=== PATIENT | male | born 1940 | race Caucasian/White ===

== ENCOUNTER 2018-09-20 10:15 | Outpatient (CLI) | payer MEDICARE, MEDICAID ==
[~2018-09-20 10:15] MED LIST: AMIO100T4 PO; AMLO1CAP10 PO; CALC500T33 PO; CARB1TAB23 PO; CEPH500C5 PO; CLOP75TA35 PO; FERR325T28 PO; MULT1TAB74 PO; POLY17PO10 PO; RISP1TAB13 PO; [UNRECOGNIZED DRUG - CODE] TP; [UNRECOGNIZED DRUG - SUPPLY] TOP
--- NOTE | 2018-09-20 13:00 | NUR ---
Patient arrived via wheelchair accompanied by caregiver from [facility] and was admitted to outpatient wound care for physician visit with Henrik Raygoza MD. Dressing removed, wound cleansed and lidocaine applied per order. New patient assessment completed with assistance from caregiver by RN, medications reviewed. 1130 - Dr. Raygoza at bedside accompanied by RN. Wound assessed by MD and orders written. Plan of care discussed with patient's caregiver. Dressings placed per MD orders however when RN approached [facility] to place dressings the patient became combative and began cussing and striking out. Caregiver was unable to calm patient down and telephoned her agency for assistance. No assistance came and patient became increasingly combative with caregiver and staff and was not safe for transfer back to his wheelchair from [facility] so security was called for assistance. Patient was able to be transferred safely to his wheelchair without outbursts with presence of security and no further intervention was needed. Patient instructed on the signs and symptoms of infection and to call the Wound Center if any occur or to go to the ED if we are closed: Increased pain in wound Increase in drainage from the wound Redness in the skin surrounding the wound Bleeding from the wound Temperature of 101 or greater Patient instructed that the weight of their body puts a large amount of pressure on their wounds. This pressure keeps the new tissue from growing and inhibits new blood vessels from forming. Explained that, if they continue to bear weight on a body part that has a wound, the time it takes to heal the wound increases, the wound may get worse or the wound may not heal at all. Patient's caregiver verbalized understanding of all discharge instructions and plan of care and drove patient in wheelchair out to [facility]. Patient is in stable condition with no sign or symptom of distress at time of discharge.
== END 2018-09-20 13:16 | disposition home or self-care (01) ==
LOC: WOUND CARE 10:15 → EDSTATUS 10:30 → WOUND CARE 13:16
PROVIDERS: ATTEND Surgery
DX: L89.892 Pressure ulcer of other site, stage 2 (principal); I10 Essential (primary) hypertension; I48.91 Unspecified atrial fibrillation; G89.29 Other chronic pain; M54.9 Dorsalgia, unspecified; F03.90 Unspecified dementia, unspecified severity, without behavioral disturbance, psychotic disturbance, mood disturbance, and anxiety; Z87.440 Personal history of urinary (tract) infections; Z79.01 Long term (current) use of anticoagulants; Z79.899 Other long term (current) drug therapy; Z98.890 Other specified postprocedural states; Z95.0 Presence of cardiac pacemaker; Z86.73 Personal history of transient ischemic attack (TIA), and cerebral infarction without residual deficits; Z90.49 Acquired absence of other specified parts of digestive tract; Z87.891 Personal history of nicotine dependence
CPT/HCPCS: A6021; A6206; A6212; G0463

== ENCOUNTER 2018-09-27 10:20 | Outpatient (CLI) | payer MEDICARE, MEDICAID ==
--- NOTE | 2018-09-27 12:00 | NUR ---
Patient arrived via wheelchair accompanied by caregiver from [facility] and was admitted to outpatient wound care for physician visit with Henrik Raygoza MD. Dressing removed, wound cleansed. Patient assessed for changes in conditions, medications and medical history. 1145 - Dr. Raygoza at bedside accompanied by RN. Wound assessed by and is declared healed. Patient care is discussed with patient's caregiver and options for assistance at home are discussed with caregiver. Patient is discharged from the wound clinic to follow up on an as needed basis. Patient instructed on the signs and symptoms of infection and to call the Wound Center if any occur or to go to the ED if we are closed: Increased pain in wound Increase in drainage from the wound Redness in the skin surrounding the wound Bleeding from the wound Temperature of 101 or greater Patient instructed that the weight of their body puts a large amount of pressure on their wounds. This pressure keeps the new tissue from growing and inhibits new blood vessels from forming. Explained that, if they continue to bear weight on a body part that has a wound, the time it takes to heal the wound increases, the wound may get worse or the wound may not heal at all. Patient's caregiver verbalized understanding of all discharge instructions and plan of care and drove patient via wheelchair out to [facility] in stable condition with no sign or symptom of distress at time of discharge.
== END 2018-09-27 11:50 | disposition home or self-care (01) ==
LOC: WOUND CARE 10:20 → EDSTATUS 11:00 → WOUND CARE 11:50
PROVIDERS: ATTEND Surgery
DX: L89.892 Pressure ulcer of other site, stage 2 (principal); I10 Essential (primary) hypertension; I48.91 Unspecified atrial fibrillation; G89.29 Other chronic pain; M54.9 Dorsalgia, unspecified; F03.90 Unspecified dementia, unspecified severity, without behavioral disturbance, psychotic disturbance, mood disturbance, and anxiety; Z87.440 Personal history of urinary (tract) infections; Z79.01 Long term (current) use of anticoagulants; Z79.899 Other long term (current) drug therapy; Z98.890 Other specified postprocedural states; Z95.0 Presence of cardiac pacemaker; Z86.73 Personal history of transient ischemic attack (TIA), and cerebral infarction without residual deficits; Z90.49 Acquired absence of other specified parts of digestive tract; Z87.891 Personal history of nicotine dependence
CPT/HCPCS: G0463

== ENCOUNTER 2019-01-08 17:56 | Inpatient (IN) | payer MEDICARE, MEDICAID ==
[~2019-01-08] VITALS: Ht 193 cm; Wt 73.0 kg
[~2019-01-08 17:56] MED LIST changes: -CEPH500C5 PO
[2019-01-08] MEDS ORDERED: acetaminophen 650mg rectal suppository RC ONE (18:15)
[2019-01-08 19:15] LABS: CLARITY,URINE TURBID (Clear); COLOR,URINE YELLOW (Yellow); GLUCOSE, URINE NEGATIVE (Neg); KETONES,URINE NEGATIVE (Neg); LEUKOCYTE ESTERASE ,URINE MODERATE (Neg); OCCULT BLOOD,URINE LARGE (Neg); PROTEIN,URINE 100 mg/dl (Neg)
[2019-01-08 19:17] LABS: UA COLLECTION TYPE STRAIGHT CATH
[2019-01-08 19:17] LABS: BASOPHILS % (AUTO) 0.2 % (0-1); EOSINOPHILS % (AUTO) 0.1 % (0-6); HEMATOCRIT 32.6 % (42.0-52.0); LYMPHOCYTES # (AUTO) 0.1 X10'3 (1.1-4.8); LYMPHOCYTES % (AUTO) 2.3 % (21-51); MEAN CORPUSCULAR HEMOGLOBIN 30.8 PG (27.0-31.0); MEAN CORPUSCULAR HGB CONC 33.6 g/dL (33.0-36.5); MEAN CORPUSCULAR VOLUME 91.6 FL (78-98); MEAN PLATELET VOLUME 9.1 FL (7.4-10.4); MONOCYTES # (AUTO) 0.1 X10'3 (0-0.9); MONOCYTES % (AUTO) 1.2 % (2-12); NEUTROPHILS # (AUTO) 4.7 X10'3 (1.8-7.7); NEUTROPHILS % (AUTO) 96.2 % (42-75); PLATELET COUNT 77 X10'3 (140-440); RED BLOOD COUNT 3.56 X10'6 (4.70-6.10); RED CELL DISTRIBUTION WIDTH 14.8 % (11.5-14.5); WHITE BLOOD COUNT 4.9 X10'3 (4.5-11.0)
[2019-01-08 19:18] LABS: NITRITES, URINE NEGATIVE (Neg)
[2019-01-08 19:19] LABS: BACTERIA,URINE 1+ /HPF (Neg); SQUAMOUS EPITHELIAL CELL,UR FEW /LPF (FEW); WBC CLUMPS,URINE MANY /HPF (NEGATIVE); WBC,URINE TNTC /HPF (0-4)
[2019-01-08 19:33] LABS: ALANINE AMINOTRANSFERASE 37 U/L (12-78); ALBUMIN 2.6 G/DL (3.4-5.0); ALBUMIN/GLOBULIN RATIO 0.8 (1.1-1.5); ALKALINE PHOSPHATASE 58 IU/L (46-116); ANION GAP 10 (8-16); ASPARTATE AMINO TRANSFERASE 41 U/L (10-37); BILIRUBIN,TOTAL 0.6 MG/DL (0.1-1.0); BLOOD UREA NITROGEN 31 MG/DL (7-18); BUN/CREATININE RATIO 17.6 (5.4-32.0); CALCIUM 8.8 MG/DL (8.5-10.1); CHLORIDE 107 MMOL/L (99-107); CREATININE 1.76 MG/DL (0.60-1.10); GLUCOSE 125 MG/DL (70-104); POTASSIUM 3.2 MMOL/L (3.5-5.1); SODIUM 140 MMOL/L (135-145); TOTAL CARBON DIOXIDE 23.2 MMOL/L (24-32); eGFR 37 ML/MIN
[2019-01-08 19:50] LABS: INR 1.1 INR; PARTIAL THROMBOPLASTIN TIME 29 SECONDS (22-32)
--- NOTE | 2019-01-08 19:57 | NUR ---
PTS HR INCREASED TO 138. STAT EKG ORDERED
[2019-01-08] MEDS ORDERED: normal saline 1000ML IV soln IVB STA (19:59)
[2019-01-08] MEDS ORDERED: CefTRIAXone 2gm/D5W 50ml 50 ML IV STA (19:59)
[2019-01-08] MEDS ORDERED: diltiazem 5mg/ml 5ml inj. IV ONE (20:10)
[2019-01-08] MEDS ORDERED: amiodarone 150mg/dext, iso-os 100 ML IV ONE (21:15)
[2019-01-08] MEDS ORDERED: ASPI-1265 PO (21:36)
[2019-01-08] MEDS ORDERED: CETI-102 PO (21:36)
[2019-01-08] MEDS ORDERED: BENA20TA82 PO (21:36)
[2019-01-08] MEDS ORDERED: ACET-2119 PO (21:36)
[2019-01-08] MEDS ORDERED: amiodarone/D5 360MG/200ML BAG 200 ML IV ONE (22:47)
[2019-01-08] MEDS ORDERED: normal saline 1000ML IV soln IVB ONE (22:50)
[2019-01-08] MEDS ORDERED: potassium Cl 40MEQ/NS 500ml 500 ML IV PRN ×2 (23:50)
[2019-01-08] MEDS ORDERED: magnesium 4gm in 100ml NS 100 ML IV PRN (23:50)
[2019-01-08] MEDS ORDERED: mag hydrox/Alum hydrox/simeth 30ml oral suspension PO PRN (23:50)
[2019-01-08] MEDS ORDERED: ondansetron/PF 4mg/2ml inj IV PRN (23:50)
[2019-01-08] MEDS ORDERED: magnesium Cl slow-release 64mg tablet PO PRN (23:50)
[2019-01-08] MEDS ORDERED: potassium Cl 20 mEq SR tablet PO PRN (23:50)
[2019-01-08] MEDS ORDERED: acetaminophen 325mg tablet PO PRN ×2 (23:50)
[2019-01-08] MEDS ORDERED: magnesium 2GM in 50ml NS 50 ML IV PRN (23:50)
[2019-01-08] MEDS ORDERED: docusate sod 100mg capsule PO PRN (23:50)
[2019-01-09] VITALS (10 sets, daily range): BP systolic 93–142; BP diastolic 52–89
[2019-01-09] MEDS ORDERED: normal saline 1000ML IV soln IVB ONE (00:35)
[2019-01-09] MEDS ORDERED: calcium carbonate 500mg chew tablet PO PRN (02:00)
[2019-01-09] MEDS: normal saline 1000ml 1,000 ML IV SCH ×3 (04:59→20:41)
--- NOTE | 2019-01-09 05:48 | NUR ---
PAGER ID: [phone] MESSAGE: [id number] DANIELLA, has positive blood culture, GRAM POSITIVE COCCI IN PAIRS AND SHORT CHAINs. and he is on Rocephin. Barbara [phone]
--- NOTE | 2019-01-09 06:23 | NUR ---
Problems reprioritized. Patient report given, questions answered & plan of care reviewed with ANASTASIA CHAMPION.
--- NOTE | 2019-01-09 06:29 | NUR ---
Patient in room PCU 3028M. I have received report from Chace CHAMPION and had the opportunity to ask questions and assume patient care.
[2019-01-09 06:31] LABS: BASOPHILS % (AUTO) 0.5 % (0-1); EOSINOPHILS % (AUTO) 0.1 % (0-6); HEMOGLOBIN 10.8 g/dl (14.0-17.9); LYMPHOCYTES # (AUTO) 0.6 X10'3 (1.1-4.8); LYMPHOCYTES % (AUTO) 7.3 % (21-51); MEAN CORPUSCULAR HEMOGLOBIN 30.9 PG (27.0-31.0); MEAN CORPUSCULAR HGB CONC 33.6 g/dL (33.0-36.5); MEAN CORPUSCULAR VOLUME 92.1 FL (78-98); MEAN PLATELET VOLUME 9.9 FL (7.4-10.4); MONOCYTES # (AUTO) 0.5 X10'3 (0-0.9); NEUTROPHILS # (AUTO) 6.6 X10'3 (1.8-7.7); NEUTROPHILS % (AUTO) 86.1 % (42-75); PLATELET COUNT 71 X10'3 (140-440); RED BLOOD COUNT 3.48 X10'6 (4.70-6.10); RED CELL DISTRIBUTION WIDTH 14.6 % (11.5-14.5); WHITE BLOOD COUNT 7.7 X10'3 (4.5-11.0)
[2019-01-09 06:43] LABS: ALANINE AMINOTRANSFERASE 34 U/L (12-78); ALBUMIN 2.3 G/DL (3.4-5.0); ALBUMIN/GLOBULIN RATIO 0.7 (1.1-1.5); ALKALINE PHOSPHATASE 53 IU/L (46-116); ANION GAP 8 (8-16); ASPARTATE AMINO TRANSFERASE 34 U/L (10-37); BILIRUBIN,TOTAL 0.3 MG/DL (0.1-1.0); BLOOD UREA NITROGEN 29 MG/DL (7-18); CALCIUM 8.2 MG/DL (8.5-10.1); CHLORIDE 110 MMOL/L (99-107); CHOL/HDL RATIO 3.8 (0.00-4.99); CHOLESTEROL 158 MG/DL (0-200); CREATININE 1.61 MG/DL (0.60-1.10); GLUCOSE 119 MG/DL (70-104); HDL CHOLESTEROL 42 MG/DL (35-60); LDL CHOLESTEROL 90 MG/DL (50-100); MAGNESIUM 2.1 MG/DL (1.5-2.4); SODIUM 143 MMOL/L (135-145); TOTAL CARBON DIOXIDE 25.1 MMOL/L (24-32); TOTAL PROTEIN 5.7 G/DL (6.4-8.2); TRIGLYCERIDES 97 MG/DL (20-135); eGFR 41 ML/MIN
[2019-01-09] MEDS: acetaminophen 325mg tablet PO SCH ×4 (08:00→21:00)
[2019-01-09] MEDS: K and/or MAG REPLACEMENT MC SCH (08:00)
[2019-01-09] MEDS ORDERED: cetirizine 10mg tablet PO SCH (08:00)
[2019-01-09] MEDS ORDERED: amiodarone 100mg tablet PO SCH (08:00)
[2019-01-09] MEDS: clopidogrel 75mg tablet PO SCH (08:12)
[2019-01-09] MEDS: ferrous sulfate 325mg tablet PO SCH (08:14)
[2019-01-09] MEDS: multivitamins, therapeutics tablet PO SCH (08:14)
[2019-01-09] MEDS: aspirin 81mg tab.chew PO SCH (08:14)
[2019-01-09] MEDS: amiodarone 100mg tablet PO SCH (09:56)
[2019-01-09] MEDS: risperiDONE 0.5mg tablet PO SCH ×2 (12:39→20:29)
[2019-01-09] MEDS ORDERED: cetirizine 10mg tablet PO PRN (12:50)
--- NOTE | 2019-01-09 13:49 | NUR ---
paged Dr Gold regarding patient IV PAGER ID: [phone] MESSAGE: Jacquie [phone]. RE Magaly Jacinto [id number]. Pt pulled out IV. Nurse began to attempt to replace IV but pt is very irritable and combative, nurse felt unsafe to continue. Pt to receive IV abx tonight-- are you okay with no new IV placement?
[2019-01-09] MEDS ORDERED: haloperidol lactate 5mg/ml inj IM ONE (14:15)
--- NOTE | 2019-01-09 15:13 | NUR ---
Иван trigger: Иван Montes De Oca skin intact. Addendum: 01/09/19 at [address] Amended: Links added.
--- NOTE | 2019-01-09 16:22 | NUR ---
PAGER ID: [phone] MESSAGE: [phone] pt Orville is still very restless and agitated despite Haldol. It is unsafe to attempt to put in IV in his arm with his movements. May we alternatively place it in a foot? - Pura [phone]
--- NOTE | 2019-01-09 18:18 | NUR ---
Problems reprioritized. Patient report given, questions answered & plan of care reviewed with Ihsan CHAMPION and Nitish CHAMPION.
--- NOTE | 2019-01-09 18:38 | NUR ---
Patient in room PCU 3027. I have received report from Jacquie and had the opportunity to ask questions and assume patient care.
[2019-01-09] MEDS: lactobacillus rhamnosus 10,000 MMU CELLS/CAPSULE PO SCH (20:29)
[2019-01-09] MEDS: CefTRIAXone/D5W-Rocephin 1gm 50 ML IV SCH (20:30)
[2019-01-10 02:00] VITALS: BP 148/69
--- NOTE | 2019-01-10 04:20 | NUR ---
Patient had mittens removed for 2 hours. He didn't try to pull off and cords or IVs and was being cooperative. DC'd restraints.
[2019-01-10 06:00] VITALS: BP 147/60
[2019-01-10 06:03] LABS: BASOPHILS % (AUTO) 0.3 % (0-1); EOSINOPHILS % (AUTO) 0.3 % (0-6); HEMATOCRIT 30.3 % (42.0-52.0); HEMOGLOBIN 10.2 g/dl (14.0-17.9); LYMPHOCYTES # (AUTO) 0.7 X10'3 (1.1-4.8); LYMPHOCYTES % (AUTO) 10.6 % (21-51); MEAN CORPUSCULAR HEMOGLOBIN 30.9 PG (27.0-31.0); MEAN CORPUSCULAR HGB CONC 33.6 g/dL (33.0-36.5); MEAN CORPUSCULAR VOLUME 91.9 FL (78-98); MEAN PLATELET VOLUME 9.9 FL (7.4-10.4); MONOCYTES # (AUTO) 0.6 X10'3 (0-0.9); MONOCYTES % (AUTO) 8.8 % (2-12); NEUTROPHILS # (AUTO) 5.1 X10'3 (1.8-7.7); PLATELET COUNT 63 X10'3 (140-440); RED CELL DISTRIBUTION WIDTH 14.7 % (11.5-14.5); WHITE BLOOD COUNT 6.3 X10'3 (4.5-11.0)
[2019-01-10 06:13] LABS: ALBUMIN 2.4 G/DL (3.4-5.0); ANION GAP 8 (8-16); BLOOD UREA NITROGEN 23 MG/DL (7-18); BUN/CREATININE RATIO 18.1 (5.4-32.0); CALCIUM 8.2 MG/DL (8.5-10.1); CHLORIDE 110 MMOL/L (99-107); CREATININE 1.27 MG/DL (0.60-1.10); GLUCOSE 108 MG/DL (70-104); POTASSIUM 3.2 MMOL/L (3.5-5.1); SODIUM 143 MMOL/L (135-145); TOTAL CARBON DIOXIDE 24.7 MMOL/L (24-32); eGFR 55 ML/MIN
--- NOTE | 2019-01-10 06:25 | NUR ---
Problems reprioritized. Patient report given, questions answered & plan of care reviewed with Jacquie.
--- NOTE | 2019-01-10 06:43 | NUR ---
Patient in room PCU 3026W. I have received report from Ihsan CHAMPION and had the opportunity to ask questions and assume patient care.
--- NOTE | 2019-01-10 07:24 | NUR ---
EMAR showed 2100 dose of Tylenol. I was not here during that dose, and needed to "Non-admin" to clear it from EMAR. Called pharmacy to ask them to clear the dose, but pharmacist said she is unable to and that I need to "Non admin" it and write the note.
[2019-01-10] MEDS: clopidogrel 75mg tablet PO SCH (08:00)
[2019-01-10] MEDS: multivitamins, therapeutics tablet PO SCH (08:22)
[2019-01-10] MEDS: aspirin 81mg tab.chew PO SCH (08:23)
[2019-01-10] MEDS: risperiDONE 0.5mg tablet PO SCH ×2 (08:23→20:48)
[2019-01-10] MEDS: lactobacillus rhamnosus 10,000 MMU CELLS/CAPSULE PO SCH ×2 (08:23→20:48)
[2019-01-10] MEDS: amiodarone 100mg tablet PO SCH (08:23)
[2019-01-10] MEDS: ferrous sulfate 325mg tablet PO SCH (08:23)
[2019-01-10] MEDS: acetaminophen 325mg tablet PO SCH ×4 (08:24→20:42)
[2019-01-10] MEDS: potassium Cl 20 mEq SR tablet PO PRN ×3 (08:25→20:49)
[2019-01-10] MEDS: K and/or MAG REPLACEMENT MC SCH (08:31)
--- NOTE | 2019-01-10 09:55 | NUR ---
PAGER ID: [phone] MESSAGE: Jacquie [phone]. RE: Magaly Jacinto 3027B. Pts caregivers are here & state that patient only uses wheelchair and requires assist between bed and wheelchair. Would you like me to still page for an extended PIV or leave current IV in foot?
--- NOTE | 2019-01-10 10:54 | NUR ---
Per caregivers, patient does not walk, he only uses wheelchair. I passed this onto Dr Cortés, and he stated that leaving the IV in the patient's foot is fine, and asked to have the caregivers bring in his wheelchair from home.
[2019-01-10 11:00] VITALS: BP 127/67
--- NOTE | 2019-01-10 11:53 | NUR ---
PAGER ID: [phone] MESSAGE: Jacquie cole [phone]. RE: Magaly Jacinto [id number]. Family is in the room and would like to speak with you when you can. Thank you
[2019-01-10 15:00] VITALS: BP 128/66
--- NOTE | 2019-01-10 18:17 | NUR ---
Patient in room PCU 3025S. I have received report from JAYCEE Dhillon and had the opportunity to ask questions and assume patient care. Patient is awake for bedside report and is stable at this time. Will continue to monitor closely.
--- NOTE | 2019-01-10 18:29 | NUR ---
Problems reprioritized. Patient report given, questions answered & plan of care reviewed with Rubina CHAMPION and Nitish CHAMPION.
[2019-01-10 19:00] VITALS: BP 146/75
[2019-01-10] MEDS: CefTRIAXone/D5W-Rocephin 1gm 50 ML IV SCH (20:48)
[2019-01-10 23:00] VITALS: BP 177/98
[2019-01-11] VITALS (12 sets, daily range): BP systolic 114–174; BP diastolic 60–92
--- NOTE | 2019-01-11 00:44 | NUR ---
PAGER ID: [phone] MESSAGE: Nitish Benson RN ext. [phone] converted back into Afib at 0030. Rate varies between 90-120. Has PPM. Patient is sleeping at this time. Please let me know if you would like me to do anything at this time. Thank You!
--- NOTE | 2019-01-11 00:45 | NUR ---
Spoke directly with Dr. Dela Cruz and gave one time order of IV amiodarone 600 mL/hr bolus. Patient agitated but alert. Will continue to monitor closely.
[2019-01-11] MEDS ORDERED: amiodarone 150mg/dext, iso-os 100 ML IV ONE (00:50)
--- NOTE | 2019-01-11 03:24 | NUR ---
PAGER ID: [phone] MESSAGE: Nitish Benson RN ext. [phone] Patient in 3027b rate has decreased from 130's to 110's and is still in afib after loading dose of amiodarone Addendum: 01/11/19 at 0534 by Jimenez Benson RN Spoke to Dr. Dela Cruz via telephone and confirmed order for amiodarone drip at 33 mL/hr. Patient is back on mobile 66. VS q15min. Will continue to monitor closely.
[2019-01-11] MEDS: amiodarone/D5 360MG/200ML BAG 200 ML IV SCH ×2 (03:37→08:44)
[2019-01-11 05:14] LABS: BASOPHILS % (AUTO) 0.5 % (0-1); EOSINOPHILS # (AUTO) 0.1 X10'3 (0-0.9); EOSINOPHILS % (AUTO) 1.1 % (0-6); HEMATOCRIT 31.6 % (42.0-52.0); HEMOGLOBIN 10.8 g/dl (14.0-17.9); LYMPHOCYTES # (AUTO) 0.7 X10'3 (1.1-4.8); LYMPHOCYTES % (AUTO) 10.9 % (21-51); MEAN CORPUSCULAR HEMOGLOBIN 31.2 PG (27.0-31.0); MEAN CORPUSCULAR HGB CONC 34.3 g/dL (33.0-36.5); MEAN CORPUSCULAR VOLUME 90.8 FL (78-98); MEAN PLATELET VOLUME 9.9 FL (7.4-10.4); MONOCYTES # (AUTO) 0.5 X10'3 (0-0.9); MONOCYTES % (AUTO) 8.6 % (2-12); NEUTROPHILS # (AUTO) 4.9 X10'3 (1.8-7.7); NEUTROPHILS % (AUTO) 78.9 % (42-75); PLATELET COUNT 72 X10'3 (140-440); RED BLOOD COUNT 3.48 X10'6 (4.70-6.10); RED CELL DISTRIBUTION WIDTH 14.9 % (11.5-14.5); WHITE BLOOD COUNT 6.2 X10'3 (4.5-11.0)
[2019-01-11 05:38] LABS: ALBUMIN 2.4 G/DL (3.4-5.0); ANION GAP 7 (8-16); BLOOD UREA NITROGEN 15 MG/DL (7-18); BUN/CREATININE RATIO 12.5 (5.4-32.0); CALCIUM 8.9 MG/DL (8.5-10.1); CHLORIDE 112 MMOL/L (99-107); GLUCOSE 134 MG/DL (70-104); MAGNESIUM 2.2 MG/DL (1.5-2.4); POTASSIUM 3.6 MMOL/L (3.5-5.1); SODIUM 144 MMOL/L (135-145); TOTAL CARBON DIOXIDE 24.7 MMOL/L (24-32); eGFR 58 ML/MIN
--- NOTE | 2019-01-11 06:15 | NUR ---
Orientee documentation: I have reviewed and agree with all interventions, assessments performed and documented by Nitish CHAMPION. Orientee Medication Administration: For this medication-pass time frame, all medication were reviewed, dispensed, administered and documented per hospital policy by Nitish CHAMPION.
--- NOTE | 2019-01-11 06:18 | NUR ---
Problems reprioritized. Patient report given, questions answered & plan of care reviewed with JAYCEE Dhillon and JAYCEE George.
--- NOTE | 2019-01-11 06:46 | NUR ---
Patient in room PCU 3024Y. I have received report from Rubina CHAMPION and Nitish CHAMPION and had the opportunity to ask questions and assume patient care.
[2019-01-11] MEDS: K and/or MAG REPLACEMENT MC SCH (07:49)
[2019-01-11] MEDS: aspirin 81mg tab.chew PO SCH (08:42)
[2019-01-11] MEDS: clopidogrel 75mg tablet PO SCH (08:43)
[2019-01-11] MEDS: lactobacillus rhamnosus 10,000 MMU CELLS/CAPSULE PO SCH (08:43)
[2019-01-11] MEDS: acetaminophen 325mg tablet PO SCH ×2 (08:43→15:35)
[2019-01-11] MEDS: amiodarone 100mg tablet PO SCH (08:43)
[2019-01-11] MEDS: multivitamins, therapeutics tablet PO SCH (08:44)
[2019-01-11] MEDS: ferrous sulfate 325mg tablet PO SCH (08:44)
[2019-01-11] MEDS: risperiDONE 0.5mg tablet PO SCH (08:44)
[2019-01-11] MEDS ORDERED: LACT1CAP26 PO (11:05)
[2019-01-11] MEDS ORDERED: AMOX500C2 PO (11:05)
--- NOTE | 2019-01-11 13:15 | NUR ---
Patient in room PCU 3027. I have received report from Jacquie CHAMPION and had the opportunity to ask questions and assume patient care.
--- NOTE | 2019-01-11 13:17 | NUR ---
Problems reprioritized. Patient report given, questions answered & plan of care reviewed with Nereyda CHAMPION.
--- NOTE | 2019-01-11 13:19 | NUR ---
PAGER ID: [phone] MESSAGE: [id number] Anil Jacinto Pt is still on Amio gtt, received scheduled 100 mg PO this morning, discharge is complete. Awaiting for transport set up from case management. Can I disconnect pt from Amio? Please call Nereyda# [phone] Addendum: 01/11/19 at 1323 by Nereyda Juarze RN Dr. Lopez called back. Per Dr. Lopez, stop Amio gtt and keep pt on tele monitor for 2 hours. If pt's HR remains at a control rate, pt may then be discharged.
--- NOTE | 2019-01-11 16:24 | NUR ---
IV discontinued with canula intact and tele monitor removed. Discharge instruction reviewed with pt and pt's caregiver. Pt transported home via [facility]. Vital signs within normal limits at time of discharge. New prescriptions called by Jacquie CHAMPION
== END 2019-01-11 16:20 | disposition home health service (06) | DRG 871 ==
LOC: ER 17:57 → PCU 3S 23:57 → CMPBEDREQ 23:59
PROVIDERS: ADMIT Family Medicine; ATTEND Hospitalist
DX: A40.1 Sepsis due to streptococcus, group B (principal); G93.41 Metabolic encephalopathy; N12 Tubulo-interstitial nephritis, not specified as acute or chronic; N17.9 Acute kidney failure, unspecified; F02.80 Dementia in other diseases classified elsewhere, unspecified severity, without behavioral disturbance, psychotic disturbance, mood disturbance, and anxiety; G20 Parkinson's disease; I48.0 Paroxysmal atrial fibrillation; N18.9 Chronic kidney disease, unspecified; Z80.3 Family history of malignant neoplasm of breast; Z86.73 Personal history of transient ischemic attack (TIA), and cerebral infarction without residual deficits; Z87.891 Personal history of nicotine dependence; Z90.49 Acquired absence of other specified parts of digestive tract; Z99.3 Dependence on wheelchair; Z88.8 Allergy status to other drugs, medicaments and biological substances
CPT/HCPCS: 36415; 71045; 76775; 80048; 80053; 80061; 81001; 83605; 83735; 84145; 85025; 85610; 85730; 87040; 87070; 87077; 87088; 87186; 93005; 96365; 96366; 96367; 96375; 97161; 97530; 99291; G0378; J0282; J0696; J1630; J3490; J7030

== ENCOUNTER 2019-04-04 14:12 | Inpatient (IN) | payer MEDICARE, MEDICAID ==
[~2019-04-04] VITALS: Ht 193 cm; Wt 68.0 kg
[~2019-04-04 14:12] MED LIST changes: +ACET-2119 PO; -AMLO1CAP10 PO; +ASPI-1265 PO; +BENA20TA82 PO; -CARB1TAB23 PO; +CETI-102 PO; +LACT1CAP26 PO; -POLY17PO10 PO; -[UNRECOGNIZED DRUG - SUPPLY] TOP
[2019-04-04] MEDS ORDERED: normal saline 1000ML IV soln IVB ONE (14:25)
[2019-04-04] MEDS ORDERED: ketamine 50 mg/ml 10ml vial IV ONE (14:50)
[2019-04-04] MEDS ORDERED: ketamine 10mg/ml 20ml inj 25 MG in normal saline 100ml IV soln 97.5 ML IV ONE (15:15)
[2019-04-04 15:31] LABS: PARTIAL THROMBOPLASTIN TIME 27 SECONDS (22-32)
[2019-04-04 15:32] LABS: AMMONIA < 10 UMOL/L (11-32)
[2019-04-04 15:33] LABS: LACTIC SEPSIS 1.1 MMOL/L (0.4-2.0)
[2019-04-04 15:36] LABS: BASOPHILS # (AUTO) 0.1 X10'3 (0-0.2); BASOPHILS % (AUTO) 0.9 % (0-1); EOSINOPHILS # (AUTO) 0.3 X10'3 (0-0.9); EOSINOPHILS % (AUTO) 5.1 % (0-6); HEMATOCRIT 39.5 % (42.0-52.0); LYMPHOCYTES # (AUTO) 1.2 X10'3 (1.1-4.8); LYMPHOCYTES % (AUTO) 20.7 % (21-51); MEAN CORPUSCULAR HEMOGLOBIN 30.6 PG (27.0-31.0); MEAN CORPUSCULAR HGB CONC 32.8 g/dL (33.0-36.5); MEAN CORPUSCULAR VOLUME 93.2 FL (78-98); MEAN PLATELET VOLUME 9.8 FL (7.4-10.4); MONOCYTES # (AUTO) 0.2 X10'3 (0-0.9); MONOCYTES % (AUTO) 3.8 % (2-12); NEUTROPHILS % (AUTO) 69.5 % (42-75); PLATELET COUNT 139 X10'3 (140-440); RED BLOOD COUNT 4.24 X10'6 (4.70-6.10); RED CELL DISTRIBUTION WIDTH 14.3 % (11.5-14.5); WHITE BLOOD COUNT 5.8 X10'3 (4.5-11.0)
[2019-04-04 15:39] LABS: ALBUMIN 2.9 G/DL (3.4-5.0); ANION GAP 6 (8-16); BILIRUBIN,TOTAL 0.4 MG/DL (0.1-1.0); BLOOD UREA NITROGEN 31 MG/DL (7-18); BUN/CREATININE RATIO 20.4 (5.4-32.0); CALCIUM 8.9 MG/DL (8.5-10.1); CHLORIDE 110 MMOL/L (99-107); CREATININE 1.52 MG/DL (0.60-1.10); GLUCOSE 153 MG/DL (70-104); POTASSIUM 3.7 MMOL/L (3.5-5.1); SODIUM 145 MMOL/L (135-145); TOTAL CARBON DIOXIDE 28.9 MMOL/L (24-32); TOTAL PROTEIN 6.6 G/DL (6.4-8.2); TROPONIN I 0.52 NG/ML (0.0-0.05); eGFR 44 ML/MIN
[2019-04-04 15:40] LABS: ALANINE AMINOTRANSFERASE 15 U/L (12-78); ALBUMIN/GLOBULIN RATIO 0.8 (1.1-1.5); ALKALINE PHOSPHATASE 60 IU/L (46-116); ASPARTATE AMINO TRANSFERASE 17 U/L (10-37)
[2019-04-04 15:42] LABS: ETHANOL < 0.010 GM/DL (0.0-0.010)
[2019-04-04] MEDS ORDERED: aspirin 300mg supp.rect RC ONE (15:45)
[2019-04-04 16:34] LABS: CLARITY,URINE CLOUDY (Clear); COLOR,URINE YELLOW (Yellow); GLUCOSE, URINE NEGATIVE (Neg); KETONES,URINE TRACE mg/dl (Neg); LEUKOCYTE ESTERASE ,URINE NEGATIVE (Neg); NITRITES, URINE NEGATIVE (Neg); OCCULT BLOOD,URINE NEGATIVE (Neg); PH,URINE 5.5 (4.8-8.0); PROTEIN,URINE NEGATIVE (Neg); UROBILINOGEN,URINE 0.2 E.U/dL (0.2-1.0)
[2019-04-04 16:36] LABS: UA COLLECTION TYPE STRAIGHT CATH
[2019-04-04 16:37] LABS: URINE AMPHETAMINE SCREEN NEGATIVE (Neg); URINE BARBITUATE SCREEN NEGATIVE (Neg); URINE BENZODIAZEPINES SCREEN NEGATIVE (Neg); URINE CANNABINOID SCREEN NEGATIVE (Neg); URINE COCAINE SCREEN NEGATIVE (Neg); URINE METHADONE SCREEN NEGATIVE (Neg); URINE OPIATE SCREEN NEGATIVE (Neg); URINE PHENCYCLIDINE SCREEN NEGATIVE (Neg)
[2019-04-04 16:47] LABS: RBC,URINE 0-2 /HPF (0-2); WBC,URINE 0-4 /HPF (0-4)
[2019-04-04 16:49] LABS: AMORPHOUS URATES 1+; BACTERIA,URINE NONE SEEN /HPF (Neg); MUCUS STRANDS MANY /LPF (Neg); SQUAMOUS EPITHELIAL CELL,UR MANY /LPF (FEW)
[2019-04-04 16:50] LABS: URIC ACID CRYSTALS FEW /HPF (NEGATIVE)
[2019-04-04] MEDS ORDERED: heparin 25,000 UNIT/250ml bag 250 ML IV SCH (17:39)
[2019-04-04] MEDS ORDERED: magnesium Cl slow-release 64mg tablet PO PRN (17:40)
[2019-04-04] MEDS ORDERED: ondansetron/PF 4mg/2ml inj IV PRN (17:40)
[2019-04-04] MEDS ORDERED: potassium Cl 20 mEq SR tablet PO PRN ×2 (17:40)
[2019-04-04] MEDS ORDERED: magnesium 4gm in 100ml NS 100 ML IV PRN (17:40)
[2019-04-04] MEDS ORDERED: morphine 2 MG/ML inj. syringe IV PRN ×4 (17:40→19:31)
[2019-04-04] MEDS ORDERED: potassium CL 10mEq/100ml bag 100 ML IV PRN ×2 (17:40)
[2019-04-04] MEDS ORDERED: magnesium 2GM in 50ml NS 50 ML IV PRN (17:40)
[2019-04-04] MEDS ORDERED: mag hydrox/Alum hydrox/simeth 30ml oral suspension PO PRN (17:40)
[2019-04-04] MEDS ORDERED: bisacodyl 10mg suppository rectal RC PRN (17:40)
[2019-04-04] MEDS ORDERED: acetaminophen 650mg rectal suppository RC PRN (17:40)
[2019-04-04] MEDS ORDERED: heparin 10,000 units/1 ML INJ IV PRN (18:05)
[2019-04-04] MEDS ORDERED: METO50TA16 PO (18:15)
[2019-04-04 18:28] LABS: BASOPHILS % (AUTO) 0.6 % (0-1); EOSINOPHILS # (AUTO) 0.2 X10'3 (0-0.9); EOSINOPHILS % (AUTO) 3.9 % (0-6); HEMOGLOBIN 12.9 g/dl (14.0-17.9); LYMPHOCYTES # (AUTO) 0.9 X10'3 (1.1-4.8); LYMPHOCYTES % (AUTO) 13.8 % (21-51); MEAN CORPUSCULAR HEMOGLOBIN 30.9 PG (27.0-31.0); MEAN CORPUSCULAR VOLUME 93.5 FL (78-98); MEAN PLATELET VOLUME 10.1 FL (7.4-10.4); MONOCYTES # (AUTO) 0.3 X10'3 (0-0.9); NEUTROPHILS # (AUTO) 4.8 X10'3 (1.8-7.7); NEUTROPHILS % (AUTO) 76.7 % (42-75); PLATELET COUNT 136 X10'3 (140-440); RED BLOOD COUNT 4.18 X10'6 (4.70-6.10); RED CELL DISTRIBUTION WIDTH 14.3 % (11.5-14.5); WHITE BLOOD COUNT 6.2 X10'3 (4.5-11.0)
[2019-04-04] MEDS ORDERED: NYSPWD TP (18:41)
[2019-04-04] MEDS ORDERED: RISP0.5T74 PO (18:41)
[2019-04-04] MEDS ORDERED: CLOT15CR73 TP (18:41)
[2019-04-04 18:48] LABS: PARTIAL THROMBOPLASTIN TIME 26 SECONDS (22-32)
--- NOTE | 2019-04-04 19:07 | NUR ---
Heparin cancelled, Dr. Dela Cruz is at the bedside with family and DNR comfort care has been ordered.
[2019-04-04] MEDS ORDERED: atropine sulfate 1% ophthalmic drops SL PRN (19:25)
[2019-04-04] MEDS ORDERED: morphine 10 MG/5 ML UD oral solution PO PRN (19:25)
[2019-04-04] MEDS ORDERED: OLANZapine 5mg rapidly disint. tablet PO PRN (19:25)
--- NOTE | 2019-04-04 19:35 | NUR ---
Orders are being changed and patient assignment will cng too. Waiting for new orders.
[2019-04-04] MEDS ORDERED: risperiDONE 0.5mg tablet PO PRN (19:55)
[2019-04-04] MEDS: normal saline 1000ml 1,000 ML IV SCH ×2 (19:55→21:40)
[2019-04-04] MEDS ORDERED: CALCIUM CARBONATE 750 MG PO PRN (19:55)
[2019-04-04] MEDS: clotrimazole/betamethasone diproprion. cream 15gm TP SCH (20:00)
--- NOTE | 2019-04-04 20:42 | NUR ---
Report given to JAYCEE Davison on ortho/neuor. Patient goine to Rm #[id number]
--- NOTE | 2019-04-04 20:44 | NUR ---
Patient in room . I have received report from JAYCEE Fernandez and had the opportunity to ask questions and assume patient care.
[2019-04-04 21:35] VITALS: BP 129/75
--- NOTE | 2019-04-05 06:16 | NUR ---
Gave report to Troy CHAMPION (Float from ICU) with Laney CHAMPION.
[2019-04-05] MEDS ORDERED: K and/or MAG REPLACEMENT MC SCH (08:00)
[2019-04-05] MEDS ORDERED: [UNRECOGNIZED DRUG - OTHER] TOP PRN (08:00)
[2019-04-05] MEDS: clotrimazole/betamethasone diproprion. cream 15gm TP SCH ×2 (08:21→20:00)
[2019-04-05 10:00] VITALS: BP 132/69
[2019-04-05] MEDS: normal saline 1000ml 1,000 ML IV SCH (11:19)
--- NOTE | 2019-04-05 13:30 | NUR ---
WOUND INFECTION EDUCATION PROVIDED BY WOUND CARE 1. Patient instructed to call their primary doctor, or go the ED immediately if any of the following symptoms occur: * Increased pain in wound * Increase in drainage from the wound * Redness in the skin surrounding the wound * Warmth in the skin surrounding the wound * Bleeding from the wound * Temperature of 101 or greater 2. If any of these occur while in the hospital tell a nurse immediately. Addendum: 04/05/19 at 1331 by Ivis Mensah RN Amended: Links added.
--- NOTE | 2019-04-05 15:09 | NUR ---
Pt has been made DNR w/ comfort care. Will follow per protocol. Addendum: 04/05/19 at [address] Amended: Links added.
--- NOTE | 2019-04-05 15:23 | NUR ---
Wound consult received. Pt has bilateral butt MASD w/ small open area. No intervention at this time due to DNR w/ comfort care status. Addendum: 04/05/19 at [address] Amended: Links added.
--- NOTE | 2019-04-05 16:18 | NUR ---
PAGER ID: [phone] MESSAGE: Dr. Dela Cruz for patient linda Ma room 4013a I was wondering if you wanted to do a continuous morphine drip or decrease the frequency of the PRN IV morphine. He is unable to tolerate the PO morphine and has restless behavior. thanks
[2019-04-05] MEDS ORDERED: HYDROmorphone 2mg/ml vial IV ONE (16:25)
[2019-04-05] MEDS ORDERED: HYDROmorphone 1 mg/ml syringe IV ONE (16:50)
[2019-04-05] MEDS ORDERED: ziprasidone IM 20mg inj **IM only IM ONE (18:05)
--- NOTE | 2019-04-05 20:03 | NUR ---
Patient in room ORTHO 4013. I have received report from JAYCEE Gil and had the opportunity to ask questions and assume patient care.
[2019-04-05 22:00] VITALS: BP 120/68
--- NOTE | 2019-04-06 06:32 | NUR ---
Patient in room ORTHO 4013. I have received report from Laney CHAMPION and had the opportunity to ask questions and assume patient care.
--- NOTE | 2019-04-06 06:35 | NUR ---
Problems reprioritized. Patient report given, questions answered & plan of care reviewed with JAYCEE Monaco.
[2019-04-06] MEDS: clotrimazole/betamethasone diproprion. cream 15gm TP SCH (08:47)
[2019-04-06 10:00] VITALS: BP 164/75
--- NOTE | 2019-04-06 11:27 | NUR ---
PT TO BE DC'D HOME WITH HOSPICE. AWAITING WORKFLOW DEVELOPER TO OBTAIN TRANSPORT HOME.
--- NOTE | 2019-04-06 16:09 | NUR ---
PT TRANSFERRED VIA [facility]. SPOKE WITH TOUCHER UP DIONNE FARNSWORTH WHO ASKED WHAT MEDS PT IS ON AND WHAT HE HAS BEEN GIVEN. PT BEING SENT HOME ON NO NEW MEDS. PT GIVEN NO MEDS TODAY HE IS CALM AND RESTING. KATHERINE AND NEICE AT BEDSIDE TODAY AND WERE ASKED TO LET RN KNOW IF PT NEEDS ANYTHING. BOTH VERBALIZED UNDERSTANDING. PT GIVEN DILAUDUID, GEODON A ONE TIME DOSE YESTERDAY. PT GIVEN MORPHNE SULFATE YESTERDAY WELL. PT LET IN STABLE CONDITION WITH BELONGINGS. LESLY HUTTON SIGNED AND GIVEN DC PAPERWORK.
== END 2019-04-06 16:08 | disposition hospice, home (50) | DRG 64 ==
LOC: ER 14:12 → EDBEDREQSVC 20:15 → EDBEDREQTM 20:15 → ORTHO 4S 21:06 → CMPBEDREQ 21:59
PROVIDERS: ADMIT Family Medicine; ATTEND Family Medicine
DX: I63.9 Cerebral infarction, unspecified (principal); I21.4 Non-ST elevation (NSTEMI) myocardial infarction; G20 Parkinson's disease; F01.50 Vascular dementia, unspecified severity, without behavioral disturbance, psychotic disturbance, mood disturbance, and anxiety; Z51.5 Encounter for palliative care; Z66 Do not resuscitate; I48.2 Chronic atrial fibrillation; Z80.3 Family history of malignant neoplasm of breast; Z86.73 Personal history of transient ischemic attack (TIA), and cerebral infarction without residual deficits; Z87.891 Personal history of nicotine dependence; Z90.49 Acquired absence of other specified parts of digestive tract; Z88.8 Allergy status to other drugs, medicaments and biological substances; Z79.899 Other long term (current) drug therapy; Z79.82 Long term (current) use of aspirin
CPT/HCPCS: 36415; 70450; 71045; 80053; 80305; 80320; 81001; 82140; 83605; 84484; 85025; 85610; 85730; 87040; 87081; 92508; 92616; 93005; 96361; 96374; 99291; G0378; J1170; J1644; J2270; J3486; J7030

== ENCOUNTER 2019-08-29 16:34 | Inpatient (IN) | payer MEDICARE, MEDICAID ==
[~2019-08-29] VITALS: Ht 193 cm; Wt 75.0 kg
--- NOTE | 2019-08-29 11:20 | NUR ---
pt arrived on flor from the ED, pt is nonverbal however does not seem to be in any respiratory distress, pt unable to ambulate due to contractures used slide board to transfer pt to hospital bed, NS running at 150mls/hr will continue to monitor pt Addendum: 08/30/19 at 0749 by Cora Gudino RN pt arrived to the unit at 2320
[~2019-08-29 16:34] MED LIST changes: -ACET-2119 PO; -AMIO100T4 PO; -ASPI-1265 PO; -BENA20TA82 PO; -CETI-102 PO; -CLOP75TA35 PO; +CLOT15CR73 TP; -FERR325T28 PO; -LACT1CAP26 PO; -MULT1TAB74 PO; +NYSPWD TP; +RISP0.5T74 PO; -RISP1TAB13 PO
[2019-08-29] MEDS ORDERED: normal saline 1000ml 1,000 ML IV ONE (17:04)
[2019-08-29] MEDS ORDERED: methylPREDNISolone sod succ 125mg/2ml vial IV ONE (17:05)
[2019-08-29] MEDS ORDERED: normal saline 1000ML IV soln IVB ONE (17:05)
[2019-08-29] MEDS ORDERED: albuterol 2.5 MG/3 ML nebule NEB ONE (17:10)
--- NOTE | 2019-08-29 17:26 | NUR ---
STARTED IV, MEDICATED PT WITH NS IV FLUID BOLUS AND SOLUMEDROL PER ORDERS, RT AT BEDSIDE FOR BREATHING TREATMENT PER ORDERS NOW, PT TO BE STRAIGHT CATH AFTER RESPIRATORY FINISHED.
[2019-08-29 17:44] LABS: BASOPHILS # (AUTO) 0.1 X10'3 (0-0.2); BASOPHILS % (AUTO) 0.7 % (0-1); EOSINOPHILS # (AUTO) 0.1 X10'3 (0-0.9); EOSINOPHILS % (AUTO) 1.6 % (0-6); HEMATOCRIT 35.5 % (42.0-52.0); HEMOGLOBIN 11.7 g/dl (14.0-17.9); LYMPHOCYTES # (AUTO) 1.1 X10'3 (1.1-4.8); LYMPHOCYTES % (AUTO) 15.3 % (21-51); MEAN CORPUSCULAR HEMOGLOBIN 30.3 PG (27.0-31.0); MEAN CORPUSCULAR HGB CONC 32.9 g/dL (33.0-36.5); MEAN PLATELET VOLUME 9.9 FL (7.4-10.4); MONOCYTES # (AUTO) 0.4 X10'3 (0-0.9); MONOCYTES % (AUTO) 5.9 % (2-12); NEUTROPHILS # (AUTO) 5.6 X10'3 (1.8-7.7); NEUTROPHILS % (AUTO) 76.5 % (42-75); PLATELET COUNT 179 X10'3 (140-440); RED BLOOD COUNT 3.86 X10'6 (4.70-6.10); RED CELL DISTRIBUTION WIDTH 15.9 % (11.5-14.5); WHITE BLOOD COUNT 7.3 X10'3 (4.5-11.0)
[2019-08-29 17:48] LABS: ALANINE AMINOTRANSFERASE 16 U/L (12-78); ALBUMIN 2.4 G/DL (3.4-5.0); ALBUMIN/GLOBULIN RATIO 0.6 (1.1-1.5); ALKALINE PHOSPHATASE 65 IU/L (46-116); ANION GAP 9 (8-16); ASPARTATE AMINO TRANSFERASE 27 U/L (10-37); BILIRUBIN,TOTAL 0.4 MG/DL (0.1-1.0); BLOOD UREA NITROGEN 39 MG/DL (7-18); BUN/CREATININE RATIO 23.8 (5.4-32.0); CALCIUM 8.5 MG/DL (8.5-10.1); CHLORIDE 114 MMOL/L (99-107); CREATININE 1.64 MG/DL (0.60-1.10); GLUCOSE 115 MG/DL (70-104); MAGNESIUM 2.3 MG/DL (1.5-2.4); POTASSIUM 3.8 MMOL/L (3.5-5.1); SODIUM 147 MMOL/L (135-145); TOTAL CARBON DIOXIDE 24.3 MMOL/L (24-32); TOTAL PROTEIN 6.7 G/DL (6.4-8.2); eGFR 41 ML/MIN
[2019-08-29 17:52] LABS: PARTIAL THROMBOPLASTIN TIME 25 SECONDS (22-32)
[2019-08-29] MEDS ORDERED: nitroGLYCERIN 0.2mg/hour patch TD ONE (18:35)
[2019-08-29] MEDS ORDERED: enoxaparin 100mg/ml syringe SUBCUT ONE (18:35)
[2019-08-29] MEDS ORDERED: aspirin 81mg tab.chew PO ONE (18:35)
[2019-08-29] MEDS ORDERED: LIDOcaine 2% 10ml TOPICAL JELLY (Urojet) MM ONE (18:40)
--- NOTE | 2019-08-29 19:08 | NUR ---
LUNGS CLEAR WITH DIMINISHED BASES BOTH SIDES ASPIRIN CRUSHED AND GIVEN WITH APPLESAUCE , CAREGIVER AT BEDSIDE
[2019-08-29] MEDS ORDERED: magnesium 2GM in 50ml NS 50 ML IV PRN (19:25)
[2019-08-29] MEDS ORDERED: mag hydrox/Alum hydrox/simeth 30ml oral suspension PO PRN (19:25)
[2019-08-29] MEDS ORDERED: magnesium hydroxide 30ml (MOM) UD suspension PO PRN (19:25)
[2019-08-29] MEDS ORDERED: magnesium Cl slow-release 64mg tablet PO PRN (19:25)
[2019-08-29] MEDS ORDERED: potassium Cl 20 mEq SR tablet PO PRN ×2 (19:25)
[2019-08-29] MEDS ORDERED: potassium CL 10mEq/100ml bag 100 ML IV PRN ×2 (19:25)
[2019-08-29] MEDS ORDERED: ondansetron/PF 4mg/2ml inj IV PRN (19:25)
[2019-08-29] MEDS ORDERED: magnesium 4gm in 100ml NS 100 ML IV PRN (19:25)
[2019-08-29] MEDS ORDERED: acetaminophen 325mg tablet PO PRN (19:25)
[2019-08-29] MEDS ORDERED: AMIO200T61 PO (19:25)
[2019-08-29] MEDS ORDERED: CLOP75TA15 PO (19:26)
[2019-08-29] MEDS ORDERED: BENA20TA2 PO (19:27)
[2019-08-29] MEDS ORDERED: ACET-2119 PO (19:27)
[2019-08-29] MEDS ORDERED: METO-395 PO (19:28)
[2019-08-29] MEDS ORDERED: CETI10CA PO (19:30)
[2019-08-29] MEDS ORDERED: nystatin 15 GM powder TP PRN (19:40)
[2019-08-29] MEDS ORDERED: risperiDONE 0.5mg tablet PO PRN (19:40)
[2019-08-29] MEDS ORDERED: cetirizine 10mg tablet PO PRN (19:40)
--- NOTE | 2019-08-29 19:45 | NUR ---
PHOTOS TAKEN OF WOUNDS ON BOTH FEET AND LOWER LEGS; MD HYDE
[2019-08-29] MEDS: clotrimazole/betamethasone diproprion. cream 15gm TP SCH (20:00)
[2019-08-29] MEDS: enoxaparin 40mg/0.4ml syringe SUBCUT SCH (20:00)
[2019-08-29] MEDS ORDERED: metoprolol tartrate 50mg tablet PO SCH (20:00)
[2019-08-29] MEDS ORDERED: metoprolol succinate 25mg (24-HOUR) SR. Tablet PO SCH (20:00)
[2019-08-29 20:19] LABS: CLARITY,URINE CLOUDY (Clear); COLOR,URINE YELLOW (Yellow); GLUCOSE, URINE NEGATIVE (Neg); KETONES,URINE NEGATIVE (Neg); LEUKOCYTE ESTERASE ,URINE NEGATIVE (Neg); NITRITES, URINE NEGATIVE (Neg); OCCULT BLOOD,URINE LARGE (Neg); PH,URINE 5.5 (4.8-8.0); PROTEIN,URINE NEGATIVE (Neg)
[2019-08-29 20:20] LABS: UA COLLECTION TYPE STRAIGHT CATH
[2019-08-29 20:32] LABS: BACTERIA,URINE FEW /HPF (Neg); SQUAMOUS EPITHELIAL CELL,UR FEW /LPF (FEW); URIC ACID CRYSTALS 4+ /HPF (NEGATIVE); WBC,URINE 0-4 /HPF (0-4)
--- NOTE | 2019-08-29 20:42 | NUR ---
PATIENT UNABLE TO SWALLOW WHOLE PILLS, CONTACTED PHARMACY TOPROL XL BEING CHANGED METOPROLOL SUCCINATE.
[2019-08-29] MEDS ORDERED: neomy sulf/bacitrac zn/polymixin b oint 14.2 gm tube TP PRN (21:00)
[2019-08-29] MEDS: acetaminophen 325mg tablet PO SCH (21:00)
--- NOTE | 2019-08-29 21:20 | NUR ---
Patient sleeping, did not wake up to administer tylenol.
[2019-08-29] MEDS ORDERED: metoprolol tartrate 25mg tablet PO SCH (21:40)
[2019-08-29] MEDS: K and/or MAG REPLACEMENT MC SCH (21:52)
--- NOTE | 2019-08-29 22:36 | NUR ---
CHARI DREW (CAREGIVER) [phone]
[2019-08-29 23:20] VITALS: BP 129/91
[2019-08-30 03:02] VITALS: BP 121/76
[2019-08-30 05:36] LABS: BASOPHILS % (AUTO) 0.4 % (0-1); EOSINOPHILS % (AUTO) 0 % (0-6); HEMATOCRIT 36.9 % (42.0-52.0); HEMOGLOBIN 12.2 g/dl (14.0-17.9); LYMPHOCYTES # (AUTO) 0.4 X10'3 (1.1-4.8); LYMPHOCYTES % (AUTO) 6.6 % (21-51); MEAN CORPUSCULAR HEMOGLOBIN 30.5 PG (27.0-31.0); MEAN CORPUSCULAR HGB CONC 33.2 g/dL (33.0-36.5); MEAN CORPUSCULAR VOLUME 91.9 FL (78-98); MEAN PLATELET VOLUME 9.6 FL (7.4-10.4); MONOCYTES % (AUTO) 0.8 % (2-12); NEUTROPHILS # (AUTO) 5.4 X10'3 (1.8-7.7); NEUTROPHILS % (AUTO) 92.2 % (42-75); PLATELET COUNT 178 X10'3 (140-440); RED BLOOD COUNT 4.02 X10'6 (4.70-6.10); RED CELL DISTRIBUTION WIDTH 16.4 % (11.5-14.5); WHITE BLOOD COUNT 5.8 X10'3 (4.5-11.0)
[2019-08-30 05:51] LABS: ALANINE AMINOTRANSFERASE 15 U/L (12-78); ALBUMIN 2.5 G/DL (3.4-5.0); ALBUMIN/GLOBULIN RATIO 0.6 (1.1-1.5); ALKALINE PHOSPHATASE 72 IU/L (46-116); ANION GAP 10 (8-16); ASPARTATE AMINO TRANSFERASE 26 U/L (10-37); BILIRUBIN,TOTAL 0.5 MG/DL (0.1-1.0); BLOOD UREA NITROGEN 38 MG/DL (7-18); CALCIUM 8.8 MG/DL (8.5-10.1); CHLORIDE 115 MMOL/L (99-107); CREATININE 1.52 MG/DL (0.60-1.10); GLUCOSE 156 MG/DL (70-104); POTASSIUM 3.8 MMOL/L (3.5-5.1); SODIUM 149 MMOL/L (135-145); TOTAL CARBON DIOXIDE 23.9 MMOL/L (24-32); eGFR 44 ML/MIN
[2019-08-30 05:56] LABS: MAGNESIUM 2.4 MG/DL (1.5-2.4)
[2019-08-30 06:00] VITALS: BP 130/88
--- NOTE | 2019-08-30 06:00 | NUR ---
Problems reprioritized. Patient report given, questions answered & plan of care reviewed with Josiah RN.
--- NOTE | 2019-08-30 07:05 | NUR ---
Patient in room PCU 3017. I have received report from JAYCEE GAN and had the opportunity to ask questions and assume patient care.
[2019-08-30] MEDS: clotrimazole/betamethasone diproprion. cream 15gm TP SCH (08:00)
[2019-08-30] MEDS ORDERED: amiodarone 200mg tablet PO SCH (08:00)
[2019-08-30] MEDS ORDERED: lisinopril 20mg tablet PO SCH (08:00)
[2019-08-30] MEDS ORDERED: clopidogrel 75mg tablet PO SCH (08:00)
[2019-08-30] MEDS: K and/or MAG REPLACEMENT MC SCH (08:00)
--- NOTE | 2019-08-30 08:20 | NUR ---
PAGER ID: [phone] MESSAGE: DR. KANG, [id number]/LESLY BARRIGA HERE, SAYS SHE IS POA. REQUESTING TO TALK TO YOU. SARTHAK 544. TY
[2019-08-30] MEDS: acetaminophen 325mg tablet PO SCH (08:36)
[2019-08-30] MEDS: enoxaparin 40mg/0.4ml syringe SUBCUT SCH (08:38)
[2019-08-30] MEDS ORDERED: acetaminophen 325mg tablet PO PRN (10:50)
[2019-08-30 11:00] VITALS: BP 220/190
[2019-08-30 11:05] VITALS: BP 110/78
--- NOTE | 2019-08-30 11:58 | NUR ---
PAGER ID: [phone] MESSAGE: DR. KANG, [id number]/JERARDO, PUREED WITH THIN LIQUIDS PER SPEECH. SARTHAK [id number], TY
[2019-08-30] MEDS ORDERED: ASPI-920 PO (13:21)
--- NOTE | 2019-08-30 14:12 | NUR ---
Иван trigger: Pt Иван 10; skin intact w/ no edema present. Addendum: 08/30/19 at [address] Amended: Links added.
[2019-08-30 15:00] VITALS: BP 126/82
--- NOTE | 2019-08-30 15:10 | NUR ---
CAREGIVER REFUSED FLU VAC BEFORE DISCHARGE TO FACILITY. STATES "HE WILL BE GETTING THAT NEXT WEEK".
--- NOTE | 2019-08-30 15:59 | NUR ---
PRESSURE ULCER EDUCATION: DEFINITION: A pressure ulcer is an area of skin that breaks down when you stay in one position too long. The constant pressure against the skin reduces the blood flow to that area and the affected tissue dies. CAUSES: "Being bedridden or in a wheelchair "Fragile skin "Having a chronic condition, such as diabetes or vascular disease "Inability to move certain parts of your body without assistance "Older age "Incontinence of urine or stool SYMPTOMS: "A reddened area that DOES NOT turn white when pressed on - this can be the beginning of a pressure ulcer "A blister, deep sore or a crater - these can be advanced pressure ulcers FIRST AID: "Relieve the pressure on this area "Keep the area clean and dry "Call your primary doctor if you see any of the above symptoms "DO NOT massage the area "DO NOT use a donut shaped or ring shaped pillow- these actually interfere with the blood flow and cause complications PREVENTION: "Check for pressure ulcers everyday "Change position at least every two hours to relieve pressure "Use items that help relieve pressure- pillows, sheepskin, foam padding, and powders. "Keep skin clean and dry "Eat healthy well balanced meals "Exercise daily IF YOU SEE ANY OF THESE SYMPTOMS WHILE IN THE HOSPITAL - TELL YOUR NURSE IMMEDIATELY. IF YOU SEE ANY OF THESE SYMPTOMS WHILE AT HOME OR HAVE ANY QUESTIONS OR CONCERNS ABOUT PRESSURE ULCERS - CALL YOUR PRIMARY DOCTOR IMMEDIATELY. Addendum: 08/30/19 at 1559 by Ivis Mensah RN Amended: Links added.
[2019-08-31] MEDS ORDERED: FLU VACC QS2019-20 36MOS UP/PF 60 MCG/0.5 ML SYRINGE IMVAC ONE (10:00)
== END 2019-08-30 15:39 | disposition home or self-care (01) | DRG 281 ==
LOC: ER 16:35 → ED HOLD 19:24 → PCU 3S 23:20
PROVIDERS: ADMIT Internal Medicine; ATTEND Family Medicine
DX: I21.4 Non-ST elevation (NSTEMI) myocardial infarction (principal); I48.20 Chronic atrial fibrillation, unspecified; E87.0 Hyperosmolality and hypernatremia; N17.9 Acute kidney failure, unspecified; E86.0 Dehydration; G20 Parkinson's disease; I25.10 Atherosclerotic heart disease of native coronary artery without angina pectoris; I12.9 Hypertensive chronic kidney disease with stage 1 through stage 4 chronic kidney disease, or unspecified chronic kidney disease; N18.9 Chronic kidney disease, unspecified; F01.50 Vascular dementia, unspecified severity, without behavioral disturbance, psychotic disturbance, mood disturbance, and anxiety; Z74.01 Bed confinement status; Z79.02 Long term (current) use of antithrombotics/antiplatelets; Z80.3 Family history of malignant neoplasm of breast; Z86.73 Personal history of transient ischemic attack (TIA), and cerebral infarction without residual deficits; Z87.891 Personal history of nicotine dependence; Z90.49 Acquired absence of other specified parts of digestive tract; Z95.0 Presence of cardiac pacemaker; Z88.8 Allergy status to other drugs, medicaments and biological substances; Z79.899 Other long term (current) drug therapy
CPT/HCPCS: 36415; 71045; 80053; 81001; 83605; 83735; 84484; 85025; 85610; 85730; 87040; 87081; 92508; 92616; 93005; 94640; 94760; 96361; 96372; 96374; 99285; G0378; J1650; J2930

== ENCOUNTER 2019-09-12 12:09 | Emergency (ER) | payer MEDICARE, MEDICAID ==
[~2019-09-12] VITALS: Ht 193 cm; Wt 75.0 kg
[~2019-09-12 12:09] MED LIST changes: +ACET-2119 PO; +AMIO200T61 PO; +ASPI-920 PO; +BENA20TA2 PO; -CALC500T33 PO; +CETI10CA PO; +CLOP75TA15 PO; +METO-395 PO
[2019-09-12 14:11] VITALS: BP 122/82
== END 2019-09-12 14:37 | disposition home or self-care (01) ==
LOC: ER 12:10
DX: L89.529 Pressure ulcer of left ankle, unspecified stage (principal); L89.519 Pressure ulcer of right ankle, unspecified stage; R41.82 Altered mental status, unspecified; G20 Parkinson's disease; F02.80 Dementia in other diseases classified elsewhere, unspecified severity, without behavioral disturbance, psychotic disturbance, mood disturbance, and anxiety; I48.91 Unspecified atrial fibrillation; Z86.73 Personal history of transient ischemic attack (TIA), and cerebral infarction without residual deficits; Z90.49 Acquired absence of other specified parts of digestive tract; Z98.890 Other specified postprocedural states; Z95.0 Presence of cardiac pacemaker; Z88.8 Allergy status to other drugs, medicaments and biological substances; Z79.82 Long term (current) use of aspirin; Z79.899 Other long term (current) drug therapy
CPT/HCPCS: 99284